=== PATIENT | male | born 1995 | race Caucasian/White ===

== ENCOUNTER 2022-08-29 11:57 | Outpatient (REF) | payer OTHER, SELFPAY ==
[2022-08-29 14:20] LABS: Influenza A PCR NEGATIVE (Negative); Influenza B PCR NEGATIVE (Negative); Resp Syncy Virus RNA Qual PCR NEGATIVE (Negative); SARS COV2 PCR INHOUSE NEGATIVE (Negative)
== END 2022-08-29 11:58 | disposition home or self-care (01) ==
LOC: HO.LAB 11:57
PROVIDERS: Visit Provider Nurse Practitioner Family
DX: Z20.822 Contact with and (suspected) exposure to COVID-19 (principal); R09.89 Other specified symptoms and signs involving the circulatory and respiratory systems
CPT/HCPCS: 0241U

== ENCOUNTER 2023-07-10 10:22 | Outpatient (AMB) | payer BC, SELFPAY ==
--- NOTE | 2023-07-10 10:37 | A.OFFPC_ITS ---
Vital Signs 07/10/23 10:38 Height 5 ft 11.26 in Weight 178 lb BMI 24.6 BP 128/82 Blood Pressure Location Lt brachial Position Sitting Respiration 17 Pulse 75 Pulse Source Pulse Oximeter Pulse Oximetry (%) 98 Oxygen Delivery Method Room Air Intake Visit Reasons: New patient-requesting physical Allergies amoxicillin [AMOXICILLIN] Allergy (Unknown, Verified 07/10/23 10:49) UNKNOWN Medication List - Last Reconciled 07/10/23 by Justin Welsh PA-C No Known Home Meds HPI New patient-requesting physical HPI Details Patient is a 27-year-old male here today for a new patient annual physical. Previous PCP was at a pediatric office. History of Lyme disease and bells palsy. Reports having history of heart palpitations as a child. As of late has had no symptoms of palpitations. He is interested in getting an EKG. Of note his father does have a history of AFib. . 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 Review of Systems Const Denies body aches, Denies chills, Denies excessive sweating, Denies fatigue, Denies fever(s) and Denies headache(s) Eyes Denies blurry vision ENT Denies dysphagia, Denies vertigo, Denies dizziness, Denies headache(s), Denies hearing loss and Denies tinnitus Card Denies chest pain, Denies chest pain with activity, Denies syncope, Denies irregular heart rhythm and Denies dyspnea Resp Denies chest congestion, Denies cough, Denies hemoptysis, Denies dyspnea and Denies wheezing GI Denies abdominal pain, Denies melena, Denies hematochezia, Denies coffee ground emesis, Denies dysphagia, Denies diarrhea, Denies nausea and Denies vomiting Denies difficulty urinating, Denies dysuria, Denies urinary frequency, Denies urinary hesitancy and Denies urinary urgency Musc Denies arthralgias, Denies limited range of motion, Denies muscle cramps and Denies muscle weakness Skin/Breast Denies rash and Denies skin ulcer Neuro Denies Abnormal speech present, Denies confusion, Denies vertigo, Denies dizziness, Denies syncope, Denies headache(s), Denies memory loss and Denies seizure-like activity Psych Denies anxiety, Denies confusion, Denies depression, Denies memory loss, Denies panic attacks and Denies paranoia Endo Denies excessive sweating, Denies fatigue, Denies flushing, Denies polydipsia and Denies polyuria Aller/Immun Denies wheezing Physical exam (Primary Care) Vital Signs: Last Vital Signs Pulse 75 07/10/23 10:38 Resp 17 07/10/23 10:38 BP 128/82 07/10/23 10:38 Pulse Ox 98 07/10/23 10:38 Oxygen Delivery Method Room Air 07/10/23 10:38 BMI result Body Mass Index 24.6 Tobacco/Smoking Status: Tobacco use Status Patient Tobacco Use Status Never used Tobacco 07/10/23 10:54 Const General: cooperative, comfortable, no acute distress, alert and awake; No confusion Orientation/consciousness: oriented to person, oriented to place, patient oriented x3 and No confusion HENMT Head: Yes normocephalic Ears: external ears normal and TM's normal bilaterally Face and sinus: No sinus tenderness Mouth: Normal oral and palatal mucosa present and tongue normal Teeth and gingiva: dentition normal and gingiva normal Throat: Yes posterior oropharynx normal, Yes tonsils normal and Yes uvula midline Eyes Conjunctivae: conjunctivae normal Sclerae: sclerae normal Pupils: Equal, round and reactive pupils present EOM: EOMs intact bilaterally Direct Ophthalmoscopy: No no photophobia Neck Neck: Yes no lymphadenopathy, No tender and Yes no JVD Thyroid: Thyroid normal Carotids: no bruits Chest Chest palpation & inspection: no tenderness Resp Effort & Inspection: normal respiratory effort, no audible wheezes, not labored and no stridor Auscultation: no crackles, no rales, no rhonchi and no wheezes Cardio Jugular venous distension: no JVD Rate: regular rate, not bradycardic and not tachycardic Rhythm: regular rhythm Bruits: no carotid bruits Peripheral pulses: Peripheral pulses 2+ throughout GI Inspection: Yes normal to inspection, No abdominal wall ecchymosis and No visible herniation Palpation (GI): Soft to palpation, nontender, no guarding, not rigid and No hepatosplenomegaly present Auscultation: normoactive bowel sounds General: Yes no CVA tenderness Back/Spine/Pelvis Back: no CVA tenderness and No back tenderness Cervical Spine: cervical ROM normal Thoracic/Lumbar Spine: thoracic and lumbar spine normal to inspection, straight leg raise negative bilaterally, No thoraco-lumbar ROM limited and No lumbar spinal tenderness Skin Lesions: no lesions Rashes: no rashes Wounds: no wounds Neuro General: oriented to person, oriented to place, patient oriented x3, CN's II-XI intact bilaterally and No confusion Cranial nerves: Yes Equal, round and reactive pupils present and Yes Normal accommodation reflex present Cognition (Neuro): normal cognition Speech: No Abnormal speech present Gait exam (Neuro): Normal gait present Motor exam (neuro): 5/5 motor strength present throughout Extrem Right upper extremity: full ROM; no cyanosis Left upper extremity: full ROM; no cyanosis Right lower extremity: no edema Left lower extremity: no edema Psych Appearance: grossly normal Mental Status: mental status grossly normal Affect: normal affect Attitude: cooperative Thought process: Normal thought process present Office Procedures EKG Details: See scanned in document [id number], Complete Assessment and Plan Assessment & Plan (1) Annual physical exam: Code(s): Z00.00 - Encounter for general adult medical examination without abnormal findings (2) Screening for diabetes mellitus (DM): Code(s): Z13.1 - Encounter for screening for diabetes mellitus (3) Heart palpitations: Code(s): R00.2 - Palpitations Plan: Reports history heart palpitations. Over last few years has not had any symptoms.. He is interested in getting EKG. EKG done today in office showing sinus bradycardia Orders: Orders Complete Blood Count no Diff 07/10/23 R00.2 - Palpitations Comprehensive [place]. Panel Fast 07/10/23 Z13.1 - Encounter for screening for diabetes mellitus AMB EKG-In Office 07/10/23 R00.2 - Palpitations, Z01.818 - Encounter for other preprocedural examination Coding Level of Care Code New Pt Prev Care 18-39yr([id number] Diagnoses Annual physical exam Z00.00 Screening for diabetes mellitus (DM) Z13.1 Heart palpitations R00.2 CPT Codes EKG - CPT: 05775-[id number], Complete ([id number])
[2023-07-10 10:38] VITALS: BP 128/82; PULSE 75; RESP 17; O2SAT 98; BMI 24.6
== END 2023-07-10 11:13 | disposition home or self-care (01) ==
PROVIDERS: PCP Physician Assistant; Visit Provider Physician Assistant
DX: Z00.00 Encounter for general adult medical examination without abnormal findings (principal); R00.2 Palpitations; Z86.69 Personal history of other diseases of the nervous system and sense organs
CPT/HCPCS: 93000; 99385

== ENCOUNTER 2023-07-27 08:39 | Outpatient (REF) | payer BC, SELFPAY ==
[2023-07-27 09:08] LABS: Hematocrit 43.1 % (42.0-52.0); Hemoglobin 14.5 g/dl (14.0-18.0); Mean Corpuscular HGB Conc 33.6 g/dl (31.0-36.0); Mean Corpuscular Hemoglobin 29.5 pg (27.0-33.0); Mean Corpuscular Volume 87.6 fL (80.0-98.0); Mean Platelet Volume 8.9 fL (9.4-12.4); Platelet Count 224 X10*3/uL (160-400); Red Blood Count 4.92 X10*6/uL (4.60-5.80); Red Cell Distribution Width 12.4 % (11.0-16.0); White Blood Count 5.8 X10*3/uL (4.8-10.8)
[2023-07-27 09:39] LABS: Alanine Aminotransferase 18 U/L (0-40); Albumin Level 4.5 g/dL (3.5-5.0); Alkaline Phosphatase 45 U/L (39-117); Anion Gap 14 (12-20); Aspartate Amino Transferase 19 U/L (5-37); Bilirubin Total 2.5 mg/dL (0.0-1.0); Blood Urea Nitrogen 15 mg/dL (9-16); Calcium 9.8 mg/dL (8.4-10.2); Carbon Dioxide 25 mmol/L (22-29); Chloride 104 mmol/L (96-108); Estimated Glomerular Filt Rate > 60; Glucose Fasting 88 mg/dL (60-99); Potassium 4.2 mmol/L (3.3-5.1); Sodium 139 mmol/L (135-145); Total Protein 6.9 g/dL (6.5-8.0)
== END 2023-07-27 08:40 | disposition home or self-care (01) ==
LOC: HO.LAB 08:39
PROVIDERS: PCP Physician Assistant; Visit Provider Physician Assistant
DX: Z13.1 Encounter for screening for diabetes mellitus (principal); R00.2 Palpitations
CPT/HCPCS: 36415; 80053; 85027

== ENCOUNTER 2023-08-05 11:44 | Outpatient (AMB) | payer BC, SELFPAY ==
[2023-08-05 11:46] VITALS: BP 136/72; PULSE 55; O2SAT 97; BMI 25.1
--- NOTE | 2023-08-05 11:46 | MHC.PC.OV ---
Vital Signs 08/05/23 11:46 Height 5 ft 11 in Weight 180 lb 4 oz BMI 25.1 BP 136/72 Blood Pressure Location Lt brachial Position Sitting Pulse 55 Pulse Source Pulse Oximeter Pulse Oximetry (%) 97 Oxygen Delivery Method Room Air Intake Visit Reasons: Liver MRI request Intake Note: Pt is here to discuss hemochromatosis disease that runs in paternal side of the family. Pt requesting Liver MRI plus Iron panel, Lipid panel. Scoreboard Operator Required: No Accompanied by: Self / Same As Patient Allergies amoxicillin [AMOXICILLIN] Allergy (Unknown, Verified 07/10/23 10:49) UNKNOWN Medication List - Last Reconciled 08/05/23 by Justin Welsh PA-C No Known Home Meds HPI Liver MRI request HPI Details Patient is a 27-year-old male here today for follow-up visit. Most recent labs showing elevated total bilirubin. Will be due for repeat liver profile. Concerns have been brought up about patient's excessive alcohol intake. He does admit to drinking 2 times a week 4-6 beers at a time. He he does understand that this may be considered binge drinking though does not feel that he has a problem. Otherwise does not have any abdominal pain or any evidence of jaundice. He does add that he has a family history of hemochromatosis and would like his iron checked. 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 How often do you have a drink containing alcohol?: 2-3 times a week 2. How many drinks containing alcohol do you have on a typical day when you are drinking?: 3 or 4 3. How often do you have six or more drinks on one occasion?: Monthly Total Score: 6 Review of Systems Const Denies headache(s) Eyes Denies loss of vision ENT Denies vertigo, Denies dizziness, Denies headache(s) and Denies sore throat Card Denies chest pain, Denies leg edema and Denies lightheadedness Resp Denies cough, Denies hemoptysis and Denies wheezing GI Denies abdominal pain, Denies melena, Denies constipation, Denies diarrhea and Denies vomiting Denies dysuria, Denies urinary frequency and Denies urinary urgency Musc Denies arthralgias, Denies joint swelling, Denies numbness and Denies tingling Neuro Denies Abnormal speech present, Denies behavioral changes, Denies vertigo, Denies dizziness, Denies headache(s), Denies loss of vision, Denies memory loss, Denies numbness and Denies tingling Psych Denies anxiety, Denies behavioral changes, Denies depression, Denies memory loss and Denies panic attacks Darryl/Lymph Denies easy bleeding and Denies easy bruising Aller/Immun Denies wheezing Physical exam (Primary Care) Vital Signs: Last Vital Signs Pulse 55 08/05/23 11:46 BP 136/72 08/05/23 11:46 Pulse Ox 97 08/05/23 11:46 Oxygen Delivery Method Room Air 08/05/23 11:46 BMI result Body Mass Index 25.1 Tobacco/Smoking Status: Tobacco use Status Patient Tobacco Use Status Never used Tobacco 08/05/23 11:48 Const General: healthy appearing, no acute distress, alert and awake Nutritional Appearance: well nourished Orientation/consciousness: oriented to person, oriented to place and oriented to time HENMT Ears: TM's normal bilaterally General nose exam: Normal nasal mucous membranes and turbinates present Eyes Conjunctivae: conjunctivae normal Sclerae: sclerae normal Pupils: Equal, round and reactive pupils present Neck Neck: Yes no lymphadenopathy and Yes no JVD Thyroid: Thyroid normal Carotids: no bruits Resp Effort & Inspection: normal respiratory effort and not tachypneic Auscultation: no crackles, no rales, no rhonchi and no wheezes Cardio Rate: regular rate Rhythm: regular rhythm Heart sounds: no murmurs and normal S1 and S2 GI Palpation (GI): Soft to palpation, nontender, no hepatomegaly and no splenomegaly Auscultation: normal bowel sounds Skin General skin exam: no rashes or lesions noted and dry skin Neuro General: oriented to person, oriented to place and oriented to time Cranial nerves: Yes Equal, round and reactive pupils present Speech: No Abnormal speech present Gait exam (Neuro): Normal gait present Motor exam (neuro): no tremor noted Extrem Right upper extremity: full ROM Left upper extremity: full ROM Right lower extremity: full ROM; no edema Left lower extremity: full ROM; no edema Psych Mental Status: mental status grossly normal Speech and movement: Normal speech and movement present Affect: normal affect Attitude: cooperative Thought process: Normal thought process present Assessment and Plan Assessment & Plan (1) Total bilirubin, elevated: Code(s): R17 - Unspecified jaundice Plan: Noted elevated total bilirubin. AST and ALT in within normal range. Otherwise patient asymptomatic without any abdominal pain, vomiting, diarrhea or jaundice. Does admit to some binge drinking. Offered patient ultrasound liver to begin workup evaluate though he would like to hold off for now. He is asking for MRI of liver though cannot justify this at this time. (2) Family history of hemochromatosis: Code(s): Z83.49 - Family history of other endocrine, nutritional and metabolic diseases Plan: Will check a ferritin and iron level. (3) Screening for hypercholesterolemia: Code(s): Z13.220 - Encounter for screening for lipoid disorders Orders: Orders Lipid Panel 08/05/23 Z13.220 - Encounter for screening for lipoid disorders IRON PROFILE 08/05/23 D50.9 - Iron deficiency anemia, unspecified, Z83.49 - Family history of other endocrine, nutritional and metabolic diseases Ferritin 08/05/23 Z83.49 - Family history of other endocrine, nutritional and metabolic diseases Hepatitis B,C Profile Today R17 - Unspecified jaundice, Z11.3 - Encounter for screening for infections with a predominantly sexual mode of transmission Coding Level of Care Code Est Pt Level 4 (74926) Diagnoses Total bilirubin, elevated R17 Family history of hemochromatosis Z83.49 Screening for hypercholesterolemia Z13.220
== END 2023-08-05 12:21 | disposition home or self-care (01) ==
PROVIDERS: PCP Physician Assistant; Visit Provider Physician Assistant
DX: R17 Unspecified jaundice (principal); Z83.49 Family history of other endocrine, nutritional and metabolic diseases; Z13.220 Encounter for screening for lipoid disorders
CPT/HCPCS: 99214

== ENCOUNTER 2023-08-09 08:27 | Outpatient (REF) | payer BC, SELFPAY ==
[2023-08-09 10:45] LABS: Alanine Aminotransferase 20 U/L (0-40); Albumin Level 4.8 g/dL (3.5-5.0); Alkaline Phosphatase 47 U/L (39-117); Aspartate Amino Transferase 21 U/L (5-37); Bilirubin Direct 0.5 mg/dL (0.0-0.5); Bilirubin Total 1.8 mg/dL (0.0-1.0); Cholesterol 151 mg/dL (<200); HDL Cholesterol 42 mg/dL (>40); Iron 81 mcg/dL (45-160); LDL Cholesterol Calculated 96 mg/dL (<100); Percent Iron Saturation 25 % (15-50); Total Iron Binding Capacity 330 mcg/dL (228-428); Total Protein 7.5 g/dL (6.5-8.0); Triglycerides 66 mg/dL (<150); Unsaturated Iron Binding 249 ug/dL
[2023-08-09 10:47] LABS: HBS Num1 0.42 mIU/mL (0-7.99); HBc Num1 0.06 S/CO (0.00-0.79); HBsAGNum1 0.27 S/CO (0.00-0.99); Hepatitis B Core Antibody Nonreactive (Nonreactive); Hepatitis B Surface Antigen Negative (Negative); ~HepC Num1 0.04 S/CO (0.00-0.79); ~Hepatitis B Surface Antibody NONREACTIVE (Nonreactive); ~Hepatitis C Antibody Nonreactive (Nonreactive)
[2023-08-09 11:08] LABS: Ferritin 218 ng/mL (20-250)
== END 2023-08-09 08:28 | disposition home or self-care (01) ==
LOC: HO.LAB 08:27
PROVIDERS: PCP Physician Assistant; Visit Provider Physician Assistant
DX: Z13.220 Encounter for screening for lipoid disorders (principal); Z11.3 Encounter for screening for infections with a predominantly sexual mode of transmission; R17 Unspecified jaundice; D50.9 Iron deficiency anemia, unspecified; Z83.49 Family history of other endocrine, nutritional and metabolic diseases; Z82.49 Family history of ischemic heart disease and other diseases of the circulatory system
CPT/HCPCS: 36415; 80061; 80076; 82728; 83540; 86704; 86706; 86803; 87340

== ENCOUNTER 2023-10-10 08:28 | Outpatient (AMB) | payer BC, SELFPAY ==
[2023-10-10 08:31] VITALS: BP 104/60; PULSE 46; O2SAT 98; BMI 25.5
--- NOTE | 2023-10-10 08:31 | MHC.PC.OV ---
Vital Signs 10/10/23 08:31 Height 5 ft 11 in Weight 183 lb BMI 25.5 BP 104/60 Blood Pressure Location Lt brachial Position Sitting Pulse 46 L Pulse Source Pulse Oximeter Pulse Oximetry (%) 98 Oxygen Delivery Method Room Air Intake Visit Reasons: f/u labs Allergies amoxicillin [AMOXICILLIN] Allergy (Unknown, Verified 10/10/23 08:39) UNKNOWN Medication List - Last Reconciled 10/10/23 by Justin Welsh PA-C No Known Home Meds Tobacco use date assessed: 10/10/23 Dental Screening Dental Screen Date: 10/10/23 Did you have a dental visit in the last 12 months?: Yes Did you have a dental problem in the last 6 months where you did not have access to dental care?: No Was dental information given to patient?: Patient has dentist HPI f/u labs HPI Details Patient is a 27-year-old male here today for follow-up visit. Most recent labs showing elevated total bilirubin. Otherwise patient has no significant past medical history. He is very physically active playing ice hockey several times a week. Concerns have been brought up about patient's excessive alcohol intake. He does admit to drinking 2 times a week 4-6 beers at a time. He he does understand that this may be considered binge drinking though does not feel that he has a problem. Otherwise does not have any abdominal pain or any evidence of jaundice. He does add that he has a family history of hemochromatosis Laboratory Tests 07/27/23 07/27/23 08/09/23 08:59 08:59 09:40 RBC 4.92 Iron TIBC % Saturation Total Bilirubin 2.5 H 1.8 H Hep Bs Antigen 08/09/23 09:40 RBC Iron 81 TIBC 330 % Saturation 25 Total Bilirubin Hep Bs Antigen Negative [facility] Medical History Total bilirubin, elevated Family History Father Afib Social History Housing: Apartment Alcohol intake: current Alcohol intake frequency: a few times a month Alcohol type: beer Patient Tobacco Use Status: Never used Tobacco e-Cigarette/Vaping Use: Never Used Second Hand Smoke Exposure: No Substance Use Type: Marijuana Current occupational status: employed 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 1. Little interest or pleasure in doing things: not at all 2. Feeling down, depressed, or hopeless: not at all 3. Trouble falling or staying asleep, or sleeping too much: not at all 4. Feeling tired or having little energy: not at all 5. Poor appetite or overeating: not at all 6. Feeling bad about yourself - or that you are a failure or have let yourself or your family down: not at all 7. Trouble concentrating on things, such as reading the newspaper or watching television: not at all 8. Moving or speaking so slowly that other people could have noticed. Or the opposite - being so fidgety or restless that you have been moving around a lot more than usual: not at all 9. Thoughts that you would be better off or of hurting yourself in some way: not at all Total score: 0 Depression Screening Interpretation: Negative Depression Screening Done: Yes 71009 - PHQ-9 Billing: Yes Source: Developed by Drs. Cristopher Dunne, Sangita Clinton, oJnes Shaikh and colleagues, with an educational maria luisa from [employer]. Thrive Questionnaire Date Thrive assessed: 10/10/23 I am a: Patient What is your living situation today?: I have a steady place to live Within the past 12 months, did the food you bought not last and you didn't have the money to get more?: Never true Within the past 12 months, did you worry whether your food would run out before you got money to buy more?: Never true Do you have trouble paying for medicines?: No Do you have trouble getting transportation to medical appointments?: No Do you have trouble paying your heating and electricity bill?: No Do you have trouble taking care of your child, family member or friend?: No Do you have trouble with day-to-day activities such as bathing, preparing meals, shopping, managing finances, etc.?: No Are you currently unemployed and looking for a job?: No Currently or been in a relationship where the following occur: no concerns reported AUDIT C Alcohol Use Questionnaire (AUDIT-C) 1. How often do you have a drink containing alcohol?: 2-3 times a week 2. How many drinks containing alcohol do you have on a typical day when you are drinking?: 3 or 4 3. How often do you have six or more drinks on one occasion?: Monthly Total Score: 6 MADISYN-7 AMB Questionnaire MADISYN-7 Date MADISYN - 7 assessed: 10/10/23 Feeling nervous, anxious, or on edge: 0 = Not at all Not being able to stop or control worryin = Not at all Worrying too much about different things: 0 = Not at all Trouble relaxin = Not at all Being so restless that it is hard to sit still: 0 = Not at all Becoming easily annoyed or irritable: 0 = Not at all Feeling afraid as if something awful might happen: 0 = Not at all Total MADISYN-7 score (0-4 normal; 5-9 mild; 10-14 moderate; 15-21 severe): 0 Source: Developed by Drs. Cristopher Dunne, Sangita Clinton, Jones Shaikh and colleagues, with an educational maria luisa from [employer]. MADISYN-7 Assessment Billing MADISYN-7 Assessment Tool: MADISYN-7 Assessment 24344 Review of Systems Const Denies headache(s) Eyes Denies loss of vision ENT Denies vertigo, Denies dizziness, Denies headache(s) and Denies sore throat Card Denies chest pain, Denies leg edema and Denies lightheadedness Resp Denies cough, Denies hemoptysis and Denies wheezing GI Denies abdominal pain, Denies melena, Denies constipation, Denies diarrhea and Denies vomiting Denies dysuria, Denies urinary frequency and Denies urinary urgency Musc Denies arthralgias, Denies joint swelling, Denies numbness and Denies tingling Neuro Denies Abnormal speech present, Denies behavioral changes, Denies vertigo, Denies dizziness, Denies headache(s), Denies loss of vision, Denies memory loss, Denies numbness and Denies tingling Psych Denies anxiety, Denies behavioral changes, Denies depression, Denies memory loss and Denies panic attacks Darryl/Lymph Denies easy bleeding and Denies easy bruising Aller/Immun Denies wheezing Physical exam (Primary Care) Vital Signs: Last Vital Signs Pulse 46 L 10/10/23 08:31 BP 104/60 10/10/23 08:31 Pulse Ox 98 10/10/23 08:31 Oxygen Delivery Method Room Air 10/10/23 08:31 BMI result Body Mass Index 25.5 Tobacco/Smoking Status: Tobacco use Status Tobacco use date assessed 10/10/23 10/10/23 08:33 Patient Tobacco Use Status Never used Tobacco 10/10/23 08:33 e-Cigarette/Vaping Use Never Used 10/10/23 08:33 PHQ-9: PHQ-9 Score PHQ-9: Total score 0 10/10/23 08:33 Depression Screening Interpretation: Negative Thrive Assessment: Date of Thrive Assessment Date Thrive assessed 10/10/23 10/10/23 08:33 Currently or been in a relationship where the following occur: no concerns reported Const General: healthy appearing, no acute distress, alert and awake Nutritional Appearance: well nourished Orientation/consciousness: oriented to person, oriented to place and oriented to time HENMT Ears: TM's normal bilaterally General nose exam: Normal nasal mucous membranes and turbinates present Eyes Conjunctivae: conjunctivae normal Sclerae: sclerae normal Pupils: Equal, round and reactive pupils present Neck Neck: Yes no lymphadenopathy and Yes no JVD Thyroid: Thyroid normal Carotids: no bruits Resp Effort & Inspection: normal respiratory effort and not tachypneic Auscultation: no crackles, no rales, no rhonchi and no wheezes Cardio Rate: regular rate Rhythm: regular rhythm Heart sounds: no murmurs and normal S1 and S2 GI Palpation (GI): Soft to palpation, nontender, no hepatomegaly and no splenomegaly Auscultation: normal bowel sounds Skin General skin exam: no rashes or lesions noted and dry skin Neuro General: oriented to person, oriented to place and oriented to time Cranial nerves: Yes Equal, round and reactive pupils present Speech: No Abnormal speech present Gait exam (Neuro): Normal gait present Motor exam (neuro): no tremor noted Extrem Right upper extremity: full ROM Left upper extremity: full ROM Right lower extremity: full ROM; no edema Left lower extremity: full ROM; no edema Psych Mental Status: mental status grossly normal Speech and movement: Normal speech and movement present Affect: normal affect Attitude: cooperative Thought process: Normal thought process present Assessment and Plan Assessment & Plan (1) Total bilirubin, elevated: Code(s): R17 - Unspecified jaundice Plan: Noted slightly elevated total bili . Does drink alcohol occasionally on weekends. ? [place] syndrome. Continue to follow. Otherwise patient has no abdominal pain, vomiting, diarrhea or jaundice. (2) Screening for diabetes mellitus (DM): Code(s): Z13.1 - Encounter for screening for diabetes mellitus (3) Family history of hemochromatosis: Code(s): Z83.49 - Family history of other endocrine, nutritional and metabolic diseases Plan: Patient's most recent iron studies were normal. Orders: Orders IRON PROFILE Today D50.9 - Iron deficiency anemia, unspecified, Z83.49 - Family history of other endocrine, nutritional and metabolic diseases Comprehensive [place]. Panel Fast Today Z13.1 - Encounter for screening for diabetes mellitus Coding Level of Care Code Est Pt Level 3 (81048) Diagnoses Total bilirubin, elevated R17 Screening for diabetes mellitus (DM) Z13.1 Family history of hemochromatosis Z83.49 Additional Codes MADISYN-7 Assessment Billing - MADISYN-7 Assessment Tool: MADISYN-7 Assessment 11224 ([id number])
== END 2023-10-10 08:49 | disposition home or self-care (01) ==
PROVIDERS: PCP Physician Assistant; Visit Provider Physician Assistant
DX: R17 Unspecified jaundice (principal); Z13.1 Encounter for screening for diabetes mellitus; Z83.49 Family history of other endocrine, nutritional and metabolic diseases
CPT/HCPCS: 99213

== ENCOUNTER 2023-12-23 08:29 | Outpatient (REF) | payer BC, SELFPAY ==
--- NOTE | ~2023-12-23 | US_ITS ---
EXAMINATION: US ABDOMEN LIMITED CLINICAL INFORMATION: Unspecified jaundice. Elevated liver enzymes, ultrasound to evaluate liver. COMPARISON: None available. TECHNIQUE: Real-time imaging of the right upper quadrant abdominal viscera. FINDINGS: PANCREAS: Normal. LIVER: The liver is normal in size. The liver contour is normal. There is increased echogenicity of the liver due to hepatic steatosis No focal hepatic lesion. There is no intrahepatic biliary duct dilatation seen. GALLBLADDER: Gallbladder is unremarkable. The gallbladder is physiologically distended without evidence of stones, polyps, wall thickening or pericholecystic fluid. COMMON BILE DUCT: Normal in caliber measuring 0.2 cm in diameter. RIGHT KIDNEY: Normal. No hydronephrosis. No renal calculi or focal parenchymal lesions. The kidney measures 11.2 cm in maximum dimension. FREE FLUID: None. US/US abdomen limited IMPRESSION: Mild hepatic steatosis
== END 2023-12-23 08:30 | disposition home or self-care (01) ==
LOC: HO.US 08:29
PROVIDERS: PCP Physician Assistant; Visit Provider Physician Assistant
DX: R17 Unspecified jaundice (principal)
CPT/HCPCS: 76705

== ENCOUNTER 2024-07-14 16:02 | Outpatient (AMB) | payer BC, SELFPAY ==
[2024-07-14 16:05] VITALS: BP 138/80; PULSE 58; O2SAT 99; BMI 26.3
--- NOTE | 2024-07-14 16:05 | MHC.PC.OV ---
Vital Signs 07/14/24 16:05 Height 5 ft 11 in Weight 188 lb 6 oz BMI 26.3 BP 138/80 Blood Pressure Location Lt brachial Position Sitting Pulse 58 Pulse Source Pulse Oximeter Pulse Oximetry (%) 99 Oxygen Delivery Method Room Air Intake Visit Reasons: Annual exam Intake Note: Patient is here today for a physical. Neuropsychology Medical Consultant Required: No Accompanied by: Self / Same As Patient Allergies amoxicillin [AMOXICILLIN] Allergy (Unknown, Verified 07/14/24 16:19) UNKNOWN Medication List - Last Reconciled 07/14/24 by Justin Welsh PA-C minoxidil 2.5 mg PO BID Tobacco use date assessed: 10/10/23 Dental Screening Dental Screen Date: 10/10/23 HPI Annual exam HPI Details Patient is a 28-year-old male here today for a routine annual physical. Otherwise patient has no significant past medical history. He is very physically active playing ice hockey several times a week. Concern--> he reports he intermittently has a right ear congestion and post auricle pain. He has used ynio-wgr-aurragn nasal sprays which has been somewhat helpful. .. Elevated total bilirubin: He reports he has significantly reduced his alcohol intake. He is eager to check his liver enzymes again. He does mentioned a family history of hemochromatosis. He does add that he has a family history of hemochromatosis .. Vaccines: Declines flu vaccine, up-to-date with tetanus up-to-date with [facility] Medical History Total bilirubin, elevated Family History Father Afib Social History (Updated 07/14/24 @ 16:23 by Justin Welsh PA-C) Housing: Apartment Alcohol intake: current Alcohol intake frequency: a few times a month Alcohol type: beer Patient Tobacco Use Status: Never used Tobacco e-Cigarette/Vaping Use: Never Used Second Hand Smoke Exposure: No Substance Use Type: Marijuana service: No Current occupational status: employed Current occupation: [employer] Cognitive needs: No Hearing needs: No Vision needs: No Questionnaire PHQ-9 Over the last 2 weeks, how often have you been bothered by any of the following problems? 1. Little interest or pleasure in doing things: not at all 2. Feeling down, depressed, or hopeless: not at all 3. Trouble falling or staying asleep, or sleeping too much: not at all 4. Feeling tired or having little energy: not at all 5. Poor appetite or overeating: not at all 6. Feeling bad about yourself - or that you are a failure or have let yourself or your family down: not at all 7. Trouble concentrating on things, such as reading the newspaper or watching television: not at all 8. Moving or speaking so slowly that other people could have noticed. Or the opposite - being so fidgety or restless that you have been moving around a lot more than usual: not at all 9. Thoughts that you would be better off or of hurting yourself in some way: not at all Total score: 0 Depression Screening Interpretation: Negative Depression Screening Done: Yes 17976 - PHQ-9 Billing: Yes Source: Developed by Drs. Cristopher Dunne, Sangita Clinton, Jones Shaikh and colleagues, with an educational maria luisa from [employer]. Thrive Questionnaire Date Thrive assessed: 07/14/24 I am a: Patient What is your living situation today?: I have a steady place to live Within the past 12 months, did the food you bought not last and you didn't have the money to get more?: Never true Within the past 12 months, did you worry whether your food would run out before you got money to buy more?: Never true Do you have trouble paying for medicines?: No Do you have trouble getting transportation to medical appointments?: No Do you have trouble paying your heating and electricity bill?: No Do you have trouble taking care of your child, family member or friend?: No Do you have trouble with day-to-day activities such as bathing, preparing meals, shopping, managing finances, etc.?: No Are you currently unemployed and looking for a job?: No Are you interested in more education?: No Please select the resources that you would like help with: None Currently or been in a relationship where the following occur: No concerns reported THRIVE Score: 0 AUDIT C Alcohol Use Questionnaire (AUDIT-C) 1. How often do you have a drink containing alcohol?: 2-3 times a week 2. How many drinks containing alcohol do you have on a typical day when you are drinking?: 1 or 2 3. How often do you have six or more drinks on one occasion?: Monthly Total Score: 5 MADISYN-7 AMB Questionnaire MADISYN-7 Date MADISYN - 7 assessed: 07/14/24 Feeling nervous, anxious, or on edge: 0 = Not at all Not being able to stop or control worryin = Not at all Worrying too much about different things: 0 = Not at all Trouble relaxin = Not at all Being so restless that it is hard to sit still: 0 = Not at all Becoming easily annoyed or irritable: 0 = Not at all Feeling afraid as if something awful might happen: 0 = Not at all Total MADISYN-7 score (0-4 normal; 5-9 mild; 10-14 moderate; 15-21 severe): 0 Source: Developed by Drs. Cristopher Dunne, Sangita Clinton, Jones Shaikh and colleagues, with an educational maria luisa from [employer]. MADISYN-7 Assessment Billing MADISYN-7 Assessment Tool: MADISYN-7 Assessment 16449 Review of Systems Const Denies body aches, Denies chills, Denies excessive sweating, Denies fatigue, Denies fever(s) and Denies headache(s) Eyes Denies blurry vision ENT Denies dysphagia, Denies vertigo, Denies dizziness, Denies headache(s), Denies hearing loss and Denies tinnitus Card Denies chest pain, Denies chest pain with activity, Denies syncope, Denies irregular heart rhythm and Denies dyspnea Resp Denies chest congestion, Denies cough, Denies hemoptysis, Denies dyspnea and Denies wheezing GI Denies abdominal pain, Denies melena, Denies hematochezia, Denies coffee ground emesis, Denies dysphagia, Denies diarrhea, Denies nausea and Denies vomiting Denies difficulty urinating, Denies dysuria, Denies urinary frequency, Denies urinary hesitancy and Denies urinary urgency Musc Denies arthralgias, Denies limited range of motion, Denies muscle cramps and Denies muscle weakness Skin/Breast Denies rash and Denies skin ulcer Neuro Denies Abnormal speech present, Denies confusion, Denies vertigo, Denies dizziness, Denies syncope, Denies headache(s), Denies memory loss and Denies seizure-like activity Psych Denies anxiety, Denies confusion, Denies depression, Denies memory loss, Denies panic attacks and Denies paranoia Endo Denies excessive sweating, Denies fatigue, Denies flushing, Denies polydipsia and Denies polyuria Aller/Immun Denies wheezing Physical exam (Primary Care) Vital Signs: Last Vital Signs Pulse 58 07/14/24 16:05 BP 138/80 07/14/24 16:05 Pulse Ox 99 07/14/24 16:05 Oxygen Delivery Method Room Air 07/14/24 16:05 BMI result Body Mass Index 26.3 Tobacco/Smoking Status: Tobacco use Status Tobacco use date assessed 10/10/23 07/14/24 16:06 Patient Tobacco Use Status Never used Tobacco 07/14/24 16:23 e-Cigarette/Vaping Use Never Used 07/14/24 16:23 PHQ-9: PHQ-9 Score PHQ-9: Total score 0 07/14/24 16:21 Depression Screening Interpretation: Negative Thrive Assessment: Date of Thrive Assessment Date Thrive assessed 07/14/24 07/14/24 16:11 Currently or been in a relationship where the following occur: No concerns reported Const General: cooperative, comfortable, no acute distress, alert and awake; No confusion Orientation/consciousness: oriented to person, oriented to place, patient oriented x3 and No confusion HENMT Other: SMALL AMOUNT OF CERUMEN IN RIGHT EAR, AFTER LAVAGE COMPLETELY CLEAR. NO TYMPANIC MEMBRANE A ABNORMALITIES. Head: Yes normocephalic Ears: external ears normal and TM's normal bilaterally Face and sinus: No sinus tenderness Mouth: Normal oral and palatal mucosa present and tongue normal Teeth and gingiva: dentition normal and gingiva normal Throat: Yes posterior oropharynx normal, Yes tonsils normal and Yes uvula midline Eyes Conjunctivae: conjunctivae normal Sclerae: sclerae normal Pupils: Equal, round and reactive pupils present EOM: EOMs intact bilaterally Direct Ophthalmoscopy: No no photophobia Neck Neck: Yes no lymphadenopathy, No tender and Yes no JVD Thyroid: Thyroid normal Carotids: no bruits Chest Chest palpation & inspection: no tenderness Resp Effort & Inspection: normal respiratory effort, no audible wheezes, not labored and no stridor Auscultation: no crackles, no rales, no rhonchi and no wheezes Cardio Jugular venous distension: no JVD Rate: regular rate, not bradycardic and not tachycardic Rhythm: regular rhythm Bruits: no carotid bruits Peripheral pulses: Peripheral pulses 2+ throughout GI Inspection: Yes normal to inspection, No abdominal wall ecchymosis and No visible herniation Palpation (GI): Soft to palpation, nontender, no guarding, not rigid and No hepatosplenomegaly present Auscultation: normoactive bowel sounds General: Yes no CVA tenderness Back/Spine/Pelvis Back: no CVA tenderness and No back tenderness Cervical Spine: cervical ROM normal Thoracic/Lumbar Spine: thoracic and lumbar spine normal to inspection, straight leg raise negative bilaterally, No thoraco-lumbar ROM limited and No lumbar spinal tenderness Skin Lesions: no lesions Rashes: no rashes Wounds: no wounds Neuro General: oriented to person, oriented to place, patient oriented x3, CN's II-XI intact bilaterally and No confusion Cranial nerves: Yes Equal, round and reactive pupils present and Yes Normal accommodation reflex present Cognition (Neuro): normal cognition Speech: No Abnormal speech present Gait exam (Neuro): Normal gait present Motor exam (neuro): 5/5 motor strength present throughout Extrem Right upper extremity: full ROM; no cyanosis Left upper extremity: full ROM; no cyanosis Right lower extremity: no edema Left lower extremity: no edema Psych Appearance: grossly normal Mental Status: mental status grossly normal Affect: normal affect Attitude: cooperative Thought process: Normal thought process present Office Procedures Cerumen Removal From which ear canal was the cerumen removed: right Removal: irrigation and otoscope w/curette Notes: patient tolerated procedure well and no complications 59864-Vld Irrigation/Lavage Flu Questionnaire Does the patient have a severe egg allergy?: No Does the patient have severe life threatening allergies?: No Does the patient have a fever or illness today?: No Has the patient ever had Guillain-[place] Syndrome?: No Has the patient ever had any past reaction to a flu shot?: No Immunizations Fluarix Triv [id number] (PF) 45 mcg (15 mcg x 3)/0.5 mL IM syringe Performing Provider: Justin Welsh PA-C [place] [facility] [place] [facility] Documented (not given) by: VANESSA Varghese on 07/14/24 16:09 Reason Not Given: Patient Refused Coding Level of Care Code Est Pt Prev Care 18-39y(89587) Diagnoses Annual physical exam Z00.00 Congestion of right ear H93.8X1 Total bilirubin, elevated R17 Male pattern baldness L64.9 CPT Codes Office Procedure - CPT: 95820-Naz Irrigation/Lavage ([id number]) Additional Codes MADISYN-7 Assessment Billing - MADISYN-7 Assessment Tool: MADISYN-7 Assessment 01938 ([id number]) Assessment & Plan Assessment & Plan (1) Annual physical exam: Code(s): Z00.00 - Encounter for general adult medical examination without abnormal findings Category: Medical Plan: As per HPI (2) Congestion of right ear: Code(s): H93.8X1 - Other specified disorders of right ear Category: Medical Plan: Patient has chronic right ear congestion and some posterior auricle pain and neck pain. He reports these symptoms are on and off. Did do an ear flush today with minimal amount of cerumen removed and patient reports resolution of his symptoms immediately. (3) Total bilirubin, elevated: Code(s): R17 - Unspecified jaundice Category: Medical Plan: Patient does report he has significantly reduced his alcohol intake. Does have a history of elevated total bilirubin. 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 Orders: Orders Influenza [id number] Immunization 07/14/24 Z23 - Encounter for immunization Complete Blood Count no Diff 07/14/24 Z83.49 - Family history of other endocrine, nutritional and metabolic diseases
== END 2024-07-14 16:40 | disposition home or self-care (01) ==
PROVIDERS: PCP Physician Assistant; Visit Provider Physician Assistant
DX: Z00.00 Encounter for general adult medical examination without abnormal findings (principal); H93.8X1 Other specified disorders of right ear; R17 Unspecified jaundice; L64.9 Androgenic alopecia, unspecified; H61.21 Impacted cerumen, right ear

== ENCOUNTER → 2024-07-14 16:02 | Outpatient (BNVA) | payer BC, SELFPAY | PROVIDERS: PCP Physician Assistant; Visit Provider Physician Assistant | DX: Z00.01 Encounter for general adult medical examination with abnormal findings (principal); H93.8X1 Other specified disorders of right ear; R17 Unspecified jaundice; L64.9 Androgenic alopecia, unspecified; Z28.21 Immunization not carried out because of patient refusal | CPT/HCPCS: 69210; 90471; 96127 ==

== ENCOUNTER 2025-04-06 08:00 | Outpatient (REF) | payer BC, SELFPAY ==
[2025-04-06 08:34] LABS: Hematocrit 40.2 % (42.0-52.0); Hemoglobin 14.1 g/dl (14.0-18.0); Mean Corpuscular HGB Conc 35.1 g/dl (31.0-36.0); Mean Corpuscular Hemoglobin 29.9 pg (27.0-33.0); Mean Corpuscular Volume 85.4 fL (80.0-98.0); NRBC Abs Auto 0.000 X10*3/uL (0.0-0.012); NRBC Pct Auto 0.0 /100WBC (0.0-0.2); Platelet Count 217 X10*3/uL (160-400); Red Blood Count 4.71 X10*6/uL (4.60-5.80); White Blood Count 5.6 X10*3/uL (4.8-10.8)
== END 2025-04-06 08:01 | disposition home or self-care (01) ==
LOC: HO.LAB 08:00
PROVIDERS: PCP Physician Assistant; Visit Provider Physician Assistant
DX: Z83.49 Family history of other endocrine, nutritional and metabolic diseases (principal)
CPT/HCPCS: 36415; 85027

== ENCOUNTER 2025-09-02 09:27 | Outpatient (REF) | payer BC, SELFPAY ==
--- OUTSIDE RECORDS SUMMARY | 2025-08-16 17:18 | XMS_ITS | Encounter Summary ---
Author Organization [facility] Address [address] [place] [address] Care Team Providers Care Nitrator Operator Name Role Phone Pcp, No Primary Care Provider Unavailabl e Encounter Details Date Type Department Care Team (Late st Contact Info) Description 08/16/2025 5:18 PM EST Hospital Encounter [facility] [address] [place] [phone] Jorge Brewer MD [address] [place] [address] Social History Tobacco Use Types Packs/Day Years [...] on filedocumented in this encounter Care Teams Nitrator Operator Relationship Specialty Start Date End Date Pcp, No PCP - General General Medicine 08/15/25 documented as of this encounter
--- OUTSIDE RECORDS SUMMARY | 2025-09-02 10:43 | XMS_ITS | Clinical Summary ---
Author Organization [facility] Address [address] [place] [address] Care Team Providers Care Processing Associate Name Role Phone Pcp, No Primary Care Provider Unavailabl e Allergies Active Allergy Reactions Criticality Noted Date Comments Amoxicillin Other (See Comments) Low 08/16/2025 As a baby Medications minoxidil (LONITEN) 2.5 MG tablet Take 2.5 mg by mouth daily. Active predniSONE (DELTASONE) 20 MG tabletIndicati ons:Acute bacterial bronchitis Take 2 tablets (40 mg total) by mouth daily. Take with food 10 tablet 08/16/20 Active benzonatate (TESSALON) 200 MG capsuleIndicat ions:Acute bacterial bronchitis Take 1 capsule (200 mg total) by mouth 3 (three) times a day as needed for cough. 21 capsule 08/16/20 25 Active albuterol (PROVENTIL HFA; VENTOLIN HFA) 108 (90 Base) MCG/ACT inhalerIndicat ions:Acute bacterial bronchitis Inhale 2 puffs every 4 (four) hours as needed for wheezing or shortness of breath. 1 each 08/16/20 25 Active azithromycin (ZITHROMAX) 250 MG tabletIndicati ons:Acute bacterial bronchitis Take 2 tabs PO on day 1, followed by 1 tab PO on days 2 through 5. 6 tablet 08/16/20 25 025 Discontinued predniSONE (DELTASONE) 20 MG tabletIndicati ons:Acute bacterial bronchitis Take 2 tablets (40 mg total) by mouth daily. Take with food 10 tablet 08/16/20 25 025 Discontinued albuterol (PROVENTIL HFA; VENTOLIN HFA) 108 (90 Base) MCG/ACT inhalerIndicat ions:Acute bacterial bronchitis Inhale 2 puffs every 4 (four) hours as needed for wheezing or shortness of breath. 1 each 08/16/20 25 025 Discontinued benzonatate (TESSALON) 200 MG capsuleIndicat ions:Acute bacterial bronchitis Take 1 capsule (200 mg total) by mouth 3 (three) times a day as needed for cough. 21 capsule 08/16/20 025 Discontinued azithromycin (ZITHROMAX) 250 MG tabletIndicati ons:Acute bacterial bronchitis Take 2 tabs PO on day 1, followed by 1 tab PO on days 2 through 5. 6 tablet 08/16/20 025 Active Problems No known active problems Encounters Date Type Department Care Team Description 08/16/2025 5:18 PM EST Hospital Encounter [facility] [address] [place] [phone] Jorge Brewer MD 08/16/2025 5:00 PM EST Office Visit [facility] [place] [address] [facility] [address] Jorge Brewer MD Politowski, Katarzyna, APRN Acute bacterial bronchitis (Primary Dx); Acute cough 08/16/2025 Scanned Document [address] [phone] Provider, Generic from Last 3 Months Social History Tobacco Use Types Packs/Day Years Used Date Smoking Tobacco: Never Assessed Sex and Gender Information Value Date Recorded Sex Assigned at Male 08/16/2025 4:26 PM EST Legal Sex Male 12:43 PM EST Gender Identity Male 08/16/2025 4:26 PM EST Sexual Orientation Choose not to disclose 2024 4:26 PM EST Last Filed Vital Signs Vital Sign Reading Time Taken Comments Blood Pressure 151/90 08/16/2025 5:05 PM EST Pulse 52 08/16/2025 5:05 PM EST Temperature 37 C (98.6 F) 08/16/2025 5:05 PM EST Respiratory Rate 18 08/16/2025 5:05 PM EST Oxygen Saturation 97% 08/16/2025 5:05 PM EST Inhaled Oxygen Concentration - - Weight - - Height - - Body Mass Index - - Plan of Treatment Health Maintenance Due Date Last Done Comments Hepatitis C Virus Screening 1996 HIV Screening 2009 DTaP/Tdap/Td Vaccines (1 - Tdap) 2015 Hepatitis B Vaccines (1 of 3 - 19+ 3-dose series) 2015 Influenza Vaccine 04/30/2025 COVID-19 Vaccine (1 - 2023-2 5 season) 2025 HPV Vaccines (No Doses Required) Completed Pneumococcal Vaccine: Pediat sara (0-5 Years) and At-Risk Patients (6 to 49 Years) Aged Out No longer eligible b ased on patient's age to complete this topic Procedures Procedure Name Priority Date/Time Associated Diagnosis Comments XR CHEST 2 VIEWS STAT 08/16/2025 5:28 PM EST Acute cough from Last 3 Months Results * XR Chest 2 views (08/16/2025 [...] No acute cardiopulmonary abnormality. Vale Castillo APRN IMJuliana DIAGNOSTIC IMAGING ORDERABLES Final Result from Last 3 Months Insurance [facility] OUT OF STATE - O Care Teams Processing Associate Relationship Specialty Start Date End Date Pcp, No PCP - General General Medicine 08/15/25
--- OUTSIDE RECORDS SUMMARY | 2025-09-02 10:43 | XMS_ITS ---
Author Name [facility] Organization Unknown History of Medication Use Medication Directions Dispensed Refills Start Date End Date Stat us albuterol (PROVENTIL HFA; VENTOLIN HFA) 108 (90 Base) MCG/ACT inhaler Inhale 2 puffs every 4 (four) hours as needed for wheezing or shortness of breath. 08/16/2025 08/16/2025 active azithromycin (ZITHROMAX) 250 MG tablet Take 2 tabs PO on day 1, followed by 1 tab PO on days 2 through 5. 08/16/2025 08/16/2025 active benzonatate (TESSALON) 200 MG capsule Take 1 capsule (200 mg total) by mouth 3 (three) times a day as needed for cough. 08/16/2025 08/16/2025 aborted predniSONE (DELTASONE) 20 MG tablet Take 2 tablets (40 mg total) by mouth daily. Take with food 08/16/2025 08/16/2025 aborted minoxidil (LONITEN) 2.5 MG tablet Take 2.5 mg by mouth daily. active Allergies Allergen Reaction Severity Comment Documented Date Source Statu s AMOXICILLIN OTHER (SEE COMMENTS) As a baby 08/16/2025 [facility] active Problems Problem Status Onset Date Problem Type Date of Resoluti on Source Acute cough [facility] Acute bacterial bronchitis active [facility] Encounters Encounter Type Encounter Reason Primary Diagnosis Location Date Ambulatory [facility] [facility] 08/16/2025 [facility] 08/16/2025 Care Team Organization Name Specialty Phone Email Start Date End [facility] NO PCP Primary Care 08/18/2025 [facility] 08/17/2025 [facility] 08/16/2025
--- OUTSIDE RECORDS SUMMARY | 2025-09-02 10:43 | XMS_ITS | Encounter Summary ---
Author Organization [facility] Address [address] [place] [address] Care Team Providers Care Respite Worker Name Role Phone Pcp, No Primary Care Provider Unavailabl e Encounter Details Date Type Department Care Team (Late st Contact Info) Description 08/16/2025 Scanned Document [address] [facility] [place] [address] Provider, Generic Social History Tobacco Use Types Packs/Day Years [...] on file documented as of this encounter Visit Diagnoses Not on filedocumented in this encounter Care Teams Respite Worker Relationship Specialty Start Date End Date Pcp, Deepa PCP - General General Medicine 08/15/25 documented as of this encounter
--- OUTSIDE RECORDS SUMMARY | 2025-09-02 10:43 | XMS_ITS | Clinical Summary ---
Author Organization [facility] Address [address] [place] [address] [place] [id number] Phone Care Team Providers Care Consumer Affairs Manager Name Role Phone Jayden Vale MD Primary Care Provider Allergies Active Allergy Reactions Criticality Noted Date Comments Amoxicillin Rash Low 01/08/2018 Medications No known medications Active Problems Problem Noted Date Diagnosed Date Sebaceous cyst 01/08/2018 Family History Relation Status Comments Father Alive Mother Alive Social History Tobacco Use Types Packs/Day Years Used Date Smoking Tobacco: Never Smokeless Tobacco: Never Alcohol Use Standard Drinks/Week Comments Yes 0 (1 standard drink = 0.6 oz pur e alcohol) 1-2/week Education Answer Date Recorded Are you interested in more education? Not on gavin e 01/25/2023 Are you concerned about learning? Not on file 01/25/2023 No 01/25/2023 No 01/25/2023 Digital Access Answer Date Recorded No 02/22/2023 No 02/22/2023 No 02/22/2023 Reliable internet access at home? Not on file 02/22/2023 Device with a working camera? Not on file Sex and Gender Information Value Date Recorded Sex Assigned at Not on file Legal Sex Male 8:50 PM EDT Gender Identity Not on file Sexual Orientation Not on file Last Filed Vital Signs Vital Sign Reading Time Taken Comments Blood Pressure 127/71 01/08/2018 11:47 AM EDT Pulse 55 01/08/2018 11:47 AM EDT Temperature - - Respiratory Rate - - Oxygen Saturation - - Inhaled Oxygen Concentration - - Weight 81.2 kg (179 lb) 01/08/2018 11:47 AM EDT Height 179.1 cm (5' 10.5 ) 01/08/2018 11:47 AM E DT Body Mass Index 25.32 01/08/2018 11:47 AM EDT Plan of Treatment Health Maintenance Due Date Last Done Comments DEPRESSION SCREENING 2008 HEPATITIS C SCREENING 2014 HIV ONE-TIME SCREENING (18-6 5 YEARS) 2014 SMOKING STATUS SCREENING (On ce After 26 Yrs) 2022 INFLUENZA VACCINE (#1) 2025 COVID-19 VACCINE (2 2024-2 6 season) 2025 01/09/2021 Adult Td,Tdap Booster 03/24/2026 03/24/2016 MENINGOCOCCAL VACCINES (ACWY) Completed 10/14/2015 HEPATITIS A VACCINES Aged Out No long er eligible based on patient's age to complete this topic HIB VACCINES Aged Out No longer eligi ble based on patient's age to complete this topic MENINGOCOCCAL VACCINES (B) Aged Out N o longer eligible based on patient's age to complete this topic PNEUMOCOCCAL VACCINES (0-49 years) Aged Out No longer eligible based on patient's age to complete this topic Medical Devices Not on file Insurance [place] [address] [place] [address] [place] Care Teams Consumer Affairs Manager Relationship Specialty Start Date End Date Akanksha, Jayden Tomas, MD [address] [facility] [place] [id number] PCP - General Pediatrics 09/25/17 Additional Source Comments The information contained in this document represents components of the legal health record. It is not the complete legal health record.[facility]
[2025-09-02 11:56] LABS: Alanine Aminotransferase 33 U/L (0-40); Albumin Level 5.0 g/dL (3.5-5.0); Alkaline Phosphatase 50 U/L (39-117); Anion Gap 12 (12-20); Aspartate Amino Transferase 30 U/L (5-37); Blood Urea Nitrogen 14 mg/dL (9-16); Calcium 9.5 mg/dL (8.4-10.2); Carbon Dioxide 27 mmol/L (22-29); Chloride 107 mmol/L (96-108); Cholesterol 189 mg/dL (<200); Estimated Glomerular Filt Rate > 60; HDL Cholesterol 50 mg/dL (>40); Potassium 4.5 mmol/L (3.3-5.1); Sodium 141 mmol/L (135-145); Total Protein 7.2 g/dL (6.5-8.0); Triglycerides 77 mg/dL (<150)
[2025-09-02 12:12] LABS: Ferritin 219 ng/mL (20-250)
== END 2025-09-02 09:28 | disposition home or self-care (01) ==
LOC: HO.LAB 09:27
PROVIDERS: PCP Physician Assistant; Visit Provider Physician Assistant
DX: R00.2 Palpitations (principal); Z83.49 Family history of other endocrine, nutritional and metabolic diseases; R17 Unspecified jaundice; Z13.6 Encounter for screening for cardiovascular disorders; Z13.0 Encounter for screening for diseases of the blood and blood-forming organs and certain disorders involving the immune mechanism
CPT/HCPCS: 36415; 80053; 80061; 82728

== ENCOUNTER 2025-09-22 09:29 | Outpatient (AMB) | payer BC, SELFPAY ==
--- OUTSIDE RECORDS SUMMARY | 2025-08-16 17:18 | XMS_ITS | Encounter Summary ---
Author Organization [facility] Address [address] [place] [address] Care Team Providers Care Manager Enterprise Content Management Name Role Phone Pcp, No Primary Care Provider Unavailabl e Encounter Details Date Type Department Care Team (Late st Contact Info) Description 08/16/2025 5:18 PM EST Hospital Encounter [facility] [address] [place] [phone] Jorge Brewer MD [address] [place] [address] Social History Tobacco Use Types Packs/Day Years Used Date Smoking Tobacco: Never Assessed Sex and Gender Information Value Date Recorded Sex Assigned at Male 08/16/2025 4:26 PM EST Legal Sex Male 12:43 PM EST Gender Identity Male 08/16/2025 4:26 PM EST Sexual Orientation Choose not to disclose 2024 4:26 PM EST documented as of this encounter Plan of Treatment Not on file documented as of this encounter Procedures Procedure Name Priority Date/Time Associated Diagnosis Comments XR CHEST 2 VIEWS STAT 08/16/2025 5:28 PM EST Acute cough documented in this encounter Results * XR Chest 2 views (08/16/2025 5:28 PM EST) Anatomical Region Laterality Modality Chest Computed Radiogr aphy 08/16/2025 5:32 PM EST Impressions 08/16/2025 5:32 PM EST No acute cardiopulmonary abnormality. Narrative 08/16/2025 5:32 PM EST EXAM: XR CHEST 2 VIEWS on 08/16/2025 5:18 PM CLINICAL HISTORY: cough. COMPARISONS: None TECHNIQUE: 2 views of the chest. FINDINGS: The visualized lungs are clear. No pleural effusions are seen. The cardiomediastinal silhouette is normal. Procedure Note Rodolfo Das MD - 08/16/2025 EXAM: XR CHEST 2 VIEWS on 08/16/2025 5:18 PM CLINICAL HISTORY: cough. COMPARISONS: None TECHNIQUE: 2 views of the chest. FINDINGS: The visualized lungs are clear. No pleural effusions are seen. Thecardiomediastinal silhouette is normal. IMPRESSION: No acute cardiopulmonary abnormality. Vale Castillo APRN IMG DIAGNOSTIC IMAGING ORDERABLES Final Result documented in this encounter Visit Diagnoses Not on filedocumented in this encounter Care Teams Manager Enterprise Content Management Relationship Specialty Start Date End Date Pcp, No PCP - General General Medicine 08/15/25 documented as of this encounter
--- OUTSIDE RECORDS SUMMARY | 2025-09-22 09:33 | XMS_ITS | Encounter Summary ---
Author Organization [facility] Address [address] [place] [address] Care Team Providers Care Certified Physical Therapist Assistant Name Role Phone Pcp, No Primary Care Provider Unavailabl e Encounter Details Date Type Department Care Team (Late st Contact Info) Description 08/16/2025 Scanned Document [address] [place] [address] Provider, Generic Social History Tobacco [...] on filedocumented in this encounter Care Teams Certified Physical Therapist Assistant Relationship Specialty Start Date End Date Pcp, Deepa PCP - General General Medicine 08/15/25 documented as of this encounter
--- OUTSIDE RECORDS SUMMARY | 2025-09-22 09:33 | XMS_ITS | Clinical Summary ---
Author Organization [facility] Address [address] [place] [address] Care Team Providers Care Cloth Mercerizing Supervisor Name Role Phone Pcp, No Primary Care Provider Unavailabl e Allergies Active Allergy Reactions Criticality Noted Date Comments Amoxicillin Other (See Comments) Low 08/16/2025 As a baby Medications minoxidil (LONITEN) 2.5 MG tablet Take 2.5 mg by mouth daily. Active predniSONE (DELTASONE) 20 MG tabletIndicatio ns:Acute bacterial bronchitis Take 2 tablets (40 mg total) by mouth daily. Take with food 10 tablet 5 Active benzonatate (TESSALON) 200 MG capsuleIndicati ons:Acute bacterial bronchitis Take 1 capsule (200 mg total) by mouth 3 (three) times a day as needed for cough. 21 capsule 5 Active albuterol (PROVENTIL HFA; VENTOLIN HFA) 108 (90 Base) MCG/ACT inhalerIndicati ons:Acute bacterial bronchitis Inhale 2 puffs every 4 (four) hours as needed for wheezing or shortness of breath. 1 each 5 Active Active Problems No known active problems Encounters Date Type Department Care Team Description 08/16/2025 5:18 PM EST Hospital Encounter [facility] [address] [place] [phone] Jorge Brewer MD 08/16/2025 5:00 PM EST Office Visit [facility] [address] [place] [phone] Jorge Brewer MD Politowski, Katarzyna, APRN Acute bacterial bronchitis (Primary Dx); Acute cough 08/16/2025 Scanned Document [address] [place] [id number] Provider, Generic from Last 3 Months Social [...] series) 2015 Influenza Vaccine 04/30/2025 COVID-19 Vaccine (2024-2 6 season) 2025 HPV Vaccines (No Doses Required) [...] Final Result from Last 3 Months Insurance [facility] Care Teams Cloth Mercerizing Supervisor Relationship Specialty Start Date End Date Pcp, No PCP - General General Medicine 08/15/25
--- OUTSIDE RECORDS SUMMARY | 2025-09-22 09:33 | XMS_ITS | Clinical Summary ---
Author Organization [facility] Address [address] [place] [address] [place] [phone] Phone Care Team Providers Care Senior Clinical Sas Programmer Name Role Phone Jayden Vale MD Primary [...] [place] [address] [place] [address] [place] Care Teams Senior Clinical Sas Programmer Relationship Specialty Start Date End Date Akanksha, Jayden Tomas, MD [address] [facility] [place] [id number] PCP - General Pediatrics 09/25/17 Additional Source Comments The information contained in this document represents components of the legal health record. It is not the complete legal health record.[facility]
[2025-09-22 09:37] VITALS: BP 128/60; PULSE 43; RESP 18; O2SAT 97; BMI 26.7
--- NOTE | 2025-09-22 09:37 | A.OFFPC_ITS ---
Vital Signs 09/22/25 09:37 Height 5 ft 11 in Weight 191 lb 2 oz BMI 26.7 BP 128/60 Blood Pressure Location Lt brachial Position Sitting Respiration 18 Pulse 43 L Pulse Source Pulse Oximeter Temp Source Temporal Artery Scan Pulse Oximetry (%) 97 Oxygen Delivery Method Room Air Intake Visit Reasons: annual exam Boring Machine Operator Helper Required: No Accompanied by: Self / Same As Patient Allergies amoxicillin (AMOXICILLIN) Allergy (Unknown, Verified 09/22/25 09:38) UNKNOWN Tobacco use date assessed: 09/22/25 Dental Screening Dental Screen Date: 09/22/25 Did you have a dental visit in the last 12 months?: Yes Did you have a dental problem in the last 6 months where you did not have access to dental care?: No Was dental information given to patient?: Patient has dentist HPI annual exam HPI Details Patient is a 29-year-old male here today for a routine annual physical. Otherwise patient has no significant past medical history. He is very physically active playing ice hockey several times a week. .. Elevated total bilirubin: He reports he has significantly reduced his alcohol intake. He has a history of hepatic steatosis and chronically elevated total bilirubin, which has been noted since at least 2022. His last liver ultrasound was over a year ago which showed mild fatty liver. --> He does add that he has a family his tory of hemochromatosis .. Vaccines: Declines flu vaccine, up-to-date with tetanus up-to-date with COVID, [facility] Medical History Total bilirubin, elevated Family History Father Afib Social History (Updated 09/22/25 @ 09:52 by Justin Welsh PA-C) Housing: Apartment Alcohol intake: current Alcohol intake frequency: a few times a month Alcohol type: beer Patient Tobacco Use Status: Current everyday Tobacco user Tobacco use type: Smokeless Tobacco e-Cigarette/Vaping Use: Never Used Second Hand Smoke Exposure: No Substance Use Type: Marijuana service: No Current occupational status: employed Current occupation: [address] [employer] Cognitive needs: No Hearing needs: No Vision needs: No Questionnaire PHQ-9 Over the last 2 weeks, how often have you been bothered by any of the following problems? 1. Little interest or pleasure in doing things: not at all 2. Feeling down, depressed, or hopeless: not at all 3. Trouble falling or staying asleep, or sleeping too much: not at all 4. Feeling tired or having little energy: not at all 5. Poor appetite or overeating: not at all 6. Feeling bad about yourself - or that you are a failure or have let yourself or your family down: not at all 7. Trouble concentrating on things, such as reading the newspaper or watching television: not at all 8. Moving or speaking so slowly that other people could have noticed. Or the opposite - being so fidgety or restless that you have been moving around a lot more than usual: not at all 9. Thoughts that you would be better off or of hurting yourself in some way: not at all Total score: 0 Depression Screening Interpretation: Negative Depression Screening Done: Yes 38211 - PHQ-9 Billing: Patient declined-do not bill Source: Developed by Drs. Cristopher Dunne, Sangita Clinton, Jones Shaikh and colleagues, with an educational maria luisa from [employer]. Thrive Questionnaire Date Thrive assessed: 09/22/25 I am a: Patient What is your living situation today?: I have a steady place to live Within the past 12 months, did the food you bought not last and you didn't have the money to get more?: Never true Within the past 12 months, did you worry whether your food would run out before you got money to buy more?: Never true Do you have trouble paying for medicines?: No Do you have trouble getting transportation to medical appointments?: No Do you have trouble paying your heating and electricity bill?: No Do you have trouble taking care of your child, family member or friend?: No Do you have trouble with day-to-day activities such as bathing, preparing meals, shopping, managing finances, etc.?: No Are you currently unemployed and looking for a job?: No Are you interested in more education?: No Please select the resources that you would like help with: None Currently or been in a relationship where the following occur: No concerns reported THRIVE Score: 0 AUDIT C Alcohol Use Questionnaire (AUDIT-C) 1. How often do you have a drink containing alcohol?: 2-3 times a week 2. How many drinks containing alcohol do you have on a typical day when you are drinking?: 1 or 2 3. How often do you have six or more drinks on one occasion?: Less than monthly Total Score: 4 MADISYN-7 AMB Questionnaire MADISYN-7 Date MADISYN - 7 assessed: 09/22/25 Feeling nervous, anxious, or on edge: 0 = Not at all Not being able to stop or control worryin = Not at all Worrying too much about different things: 0 = Not at all Trouble relaxin = Not at all Being so restless that it is hard to sit still: 0 = Not at all Becoming easily annoyed or irritable: 0 = Not at all Feeling afraid as if something awful might happen: 0 = Not at all Total MADISYN-7 score (0-4 normal; 5-9 mild; 10-14 moderate; 15-21 severe): 0 Source: Developed by Drs. Cristopher Dunne, Sangita Clinton, Jones Shaikh and colleagues, with an educational maria luisa from [employer]. MADISYN-7 Assessment Billing MADISYN-7 Assessment Tool: MADISYN-7 Assessment 13889 Review of Systems Const Denies body aches, Denies chills, Denies excessive sweating, Denies fatigue, Denies fever(s) and Denies headache(s) Eyes Denies blurry vision ENT Denies dysphagia, Denies vertigo, Denies dizziness, Denies headache(s), Denies hearing loss and Denies tinnitus Card Denies chest pain, Denies chest pain with activity, Denies syncope, Denies irregular heart rhythm and Denies dyspnea Resp Denies chest congestion, Denies cough, Denies hemoptysis, Denies dyspnea and Denies wheezing GI Denies abdominal pain, Denies melena, Denies hematochezia, Denies coffee ground emesis, Denies dysphagia, Denies diarrhea, Denies nausea and Denies vomiting Denies difficulty urinating, Denies dysuria, Denies urinary frequency, Denies urinary hesitancy and Denies urinary urgency Musc Denies arthralgias, Denies limited range of motion, Denies muscle cramps and Denies muscle weakness Skin/Breast Denies rash and Denies skin ulcer Neuro Denies Abnormal speech present, Denies confusion, Denies vertigo, Denies dizziness, Denies syncope, Denies headache(s), Denies memory loss and Denies seizure-like activity Psych Denies anxiety, Denies confusion, Denies depression, Denies memory loss, Denies panic attacks and Denies paranoia Endo Denies excessive sweating, Denies fatigue, Denies flushing, Denies polydipsia and Denies polyuria Aller/Immun Denies wheezing Physical exam (Primary Care) Vital Signs: Last Vital Signs Pulse 43 L 09/22/25 09:37 Resp 18 09/22/25 09:37 BP 128/60 09/22/25 09:37 Pulse Ox 97 09/22/25 09:37 Oxygen Delivery Method Room Air 09/22/25 09:37 BMI result Body Mass Index 26.7 Tobacco/Smoking Status: Tobacco use Status Tobacco use date assessed 09/22/25 09/22/25 09:43 Patient Tobacco Use Status Current everyday Tobacco 09/22/25 09:52 Tobacco use type Smokeless Tobacco 09/22/25 09:52 e-Cigarette/Vaping Use Never Used 09/22/25 09:52 PHQ-9: PHQ-9 Score PHQ-9: Total score 0 09/22/25 09:52 Depression Screening Interpretation: Negative Thrive Assessment: Date of Thrive Assessment Date Thrive assessed 09/22/25 09/22/25 09:43 Currently or been in a relationship where the following occur: No concerns reported Const General: cooperative, comfortable, no acute distress, alert and awake; No confusion Orientation/consciousness: oriented to person, oriented to place, patient oriented x3 and No confusion HENMT Head: Yes normocephalic Ears: external ears normal and TM's normal bilaterally Face and sinus: No sinus tenderness Mouth: Normal oral and palatal mucosa present and tongue normal Teeth and gingiva: dentition normal and gingiva normal Throat: Yes posterior oropharynx normal, Yes tonsils normal and Yes uvula midline Eyes Conjunctivae: conjunctivae normal Sclerae: sclerae normal Pupils: Equal, round and reactive pupils present EOM: EOMs intact bilaterally Direct Ophthalmoscopy: No no photophobia Neck Neck: Yes no lymphadenopathy, No tender and Yes no JVD Thyroid: Thyroid normal Carotids: no bruits Chest Chest palpation & inspection: no tenderness Resp Effort & Inspection: normal respiratory effort, no audible wheezes, not labored and no stridor Auscultation: no crackles, no rales, no rhonchi and no wheezes Cardio Jugular venous distension: no JVD Rate: regular rate, not bradycardic and not tachycardic Rhythm: regular rhythm Bruits: no carotid bruits Peripheral pulses: Peripheral pulses 2+ throughout GI Inspection: Yes normal to inspection, No abdominal wall ecchymosis and No visible herniation Palpation (GI): Soft to palpation, nontender, no guarding, not rigid and No hepatosplenomegaly present Auscultation: normoactive bowel sounds General: Yes no CVA tenderness Back/Spine/Pelvis Back: no CVA tenderness and No back tenderness Cervical Spine: cervical ROM normal Thoracic/Lumbar Spine: thoracic and lumbar spine normal to inspection, straight leg raise negative bilaterally, No thoraco-lumbar ROM limited and No lumbar spinal tenderness Skin Lesions: no lesions Rashes: no rashes Wounds: no wounds Neuro General: oriented to person, oriented to place, patient oriented x3, CN's II-XI intact bilaterally and No confusion Cranial nerves: Yes Equal, round and reactive pupils present and Yes Normal accommodation reflex present Cognition (Neuro): normal cognition Speech: No Abnormal speech present Gait exam (Neuro): Normal gait present Motor exam (neuro): 5/5 motor strength present throughout Extrem Right upper extremity: full ROM; no cyanosis Left upper extremity: full ROM; no cyanosis Right lower extremity: no edema Left lower extremity: no edema Psych Appearance: grossly normal Mental Status: mental status grossly normal Affect: normal affect Attitude: cooperative Thought process: Normal thought process present Coding Level of Care Code Est Pt Prev Care 18-39y(01764) Diagnoses Annual physical exam Z00.00 Total bilirubin, elevated R17 Male pattern baldness L64.9 Additional Codes MADISYN-7 Assessment Billing - MADISYN-7 Assessment Tool: MADISYN-7 Assessment 19066 ([id number]) Assessment & Plan Assessment & Plan (1) Annual physical exam: Code(s): Z00.00 - Encounter for general adult medical examination without abnormal findings Category: Medical Plan: As per HPI (2) Total bilirubin, elevated: Code(s): R17 - Unspecified jaundice Category: Medical Plan: Regarding the hyperbilirubinemia and history of hepatic steatosis, 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 Despite a reassuring low-risk FIB-4 score of 0.8, a liver elastography ultrasound will be ordered to monitor the condition and assess for any fibrosis. The patient has been counseled on moderating alcohol intake, with a recommendation to consume no more than two drinks per day. 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 Orders: Orders Comprehensive [place]. Panel Fast 09/22/25 Z13.1 - Encounter for screening for diabetes mellitus US abdomen comp w elastography 09/22/25 R17 - Unspecified jaundice Complete Blood Count no Diff 09/22/25 Z13.1 - Encounter for screening for diabetes mellitus
== END 2025-09-22 10:11 | disposition home or self-care (01) ==
LOC: HO.HMCH 09:30
PROVIDERS: PCP Physician Assistant; Visit Provider Physician Assistant
DX: Z00.00 Encounter for general adult medical examination without abnormal findings (principal); R17 Unspecified jaundice; L64.9 Androgenic alopecia, unspecified

== ENCOUNTER → 2025-09-22 09:29 | Outpatient (BNVA) | payer BC, SELFPAY | PROVIDERS: PCP Physician Assistant; Visit Provider Physician Assistant | DX: Z00.00 Encounter for general adult medical examination without abnormal findings (principal); R17 Unspecified jaundice; L64.9 Androgenic alopecia, unspecified | CPT/HCPCS: 96127 ==